=== PATIENT | female | born 1975 | race Caucasian/White ===

== ENCOUNTER 2017-12-21 23:54 | Emergency (ER) | payer BC ==
[2017-12-22 00:03] VITALS: BP 147/81; PULSE 86; TEMP 97.6; BMI 26.6
[2017-12-22] MEDS ORDERED: SODIUM CHLORIDE 1,000 ML IV STA (00:11)
[2017-12-22] MEDS ORDERED: ACETAMINOPHEN 1000 MG/100 ML VIAL (NON FORMULARY) IVPB ONE (00:12)
[2017-12-22] MEDS ORDERED: METOCLOPRAMIDE HCL INJECTION 10 MG/2 ML VIAL IVPUSH ONE (00:12)
--- NOTE | 2017-12-22 00:28 | PDOC ---
Attending Attestation - [facility] HPI: 12/22/17 00:53 The patient is a 42 year old female, with a significant past medical history of acid reflux, and HTN, who presents to the emergency department with, an episode of numbness to the face. As per patient, she has been sick for the past few days. Just prior to her arrival, she reports sudden onset numbness after blowing her nose. She reports fever, chills, eye pain, ear pain, sore throat, runny nose, and congestion. She reports her numbness has since resolved. She denies recent dizziness. She denies recent nausea, vomit, diarrhea or constipation. She denies recent dysuria, frequency, urgency or hematuria. She denies recent chest pain or shortness of breath. Allergies: Penicillins. Primary Care Physician: Dr. Meade - Physicial Exam PE: 12/22/17 01:34 GENERAL: The patient is in no acute distress. HEAD: Normal with no signs of trauma. EYES: PERRLA, EOMI, sclera anicteric, conjunctiva clear. ENT: Ears normal, nares patent, oropharynx clear without exudates. Moist mucous membranes. NECK: Normal range of motion, supple without lymphadenopathy, JVD, or masses. LUNGS: Breath sounds equal, clear to auscultation bilaterally. No wheezes, and no crackles. HEART:Regular rate and rhythm, normal S1 and S2 without murmur, rub or gallop. ABDOMEN: Soft, nontender, normoactive bowel sounds. No guarding, no rebound. No masses palpable. EXTREMITIES: Normal range of motion, no edema. No clubbing or cyanosis. No erythema, or tenderness. NEUROLOGICAL: Alert, awake, appropriate. Cranial nerves 2-12 intact. No deficits to light touch and temperature in face, upper extremities and lower extremities. No motor deficits in the in face, upper extremities and lower extremities. No pronator drift. Normoreflexic in the upper and lower extremities. Normal speech. Toes are down-going bilaterally. Gait is normal without ataxia. MUSCULOSKELETAL: Back non-tender to palpation, no CVA tenderness SKIN: Warm, Dry, normal turgor, no rashes or lesions noted. - Medical Decision Making 12/22/17 01:59 EXAM: CT HEAD WITHOUT CONTRAST No acute brain parenchymal abnormality. No hemorrhage, mass or acute territorial infarct. Mucoperiosteal thickening and minimal fluid paranasal sinuses. Visualized mastoid air cells clear. Individualized dose optimization techniques were used for this CT. Read by: Sofía Mckeon MD <Jorge Alberto Lugo - Last Filed: 12/22/17 01:59> - Resident Resident Name: Sylvester Luciano - ED Attending Attestation I have performed the following: I have examined & evaluated the patient, The case was reviewed & discussed with the resident, I agree w/resident's findings & plan, Exceptions are as noted - Medical Decision Making 12/23/17 00:34 Mr. Allen presents emergency department with a complaint of sensory deficit of the right cheek. She was in her usual state of health, has had a recent upper respiratory infection. She exited her shower and attempted to blow her nose, but was unable to do so. After that she bent forward and noticed fluid draining from the naris that appeared yellow/green. After that she noted some numbness of the right side of the mouth, cheek, jaw, beneath the right eye. The symptoms lasted until she arrived to the emergency department with a self resolved. Patient was concerned because her older brother had a stroke at the age of 4D3, and she has a strong family history of CVA. Patient sensory deficit was not associated with speech changes, vision changes, sensory deficit in the location of her body, focal weakness or numbness. Differential diagnosis includes but is not limited to: Sinusitis, doubt highly CTA, stroke is unlikely given complete resolution of her symptoms, D: Labs CT Reassess I've had a long conversation with this patient regarding follow-up with her primary care physician ABCD squared score 1 Patient low risk for stroke Anticipate discharge CT demonstrate sinusitis Patient is penicillin ALLERGIC, will treat with doxycycline Clinical impression: Sinusitis, initial presentation <Bhavana Trevino - Last Filed: 12/23/17 00:36> Attestations - Attestations 12/22/17 00:53 Documentation prepared by Jorge Alberto Lugo, acting as medical coding instructor for Bhavana Trevino MD. <Jorge Alberto Lugo - Last Filed: 12/22/17 01:59>
[2017-12-22] MEDS ORDERED: ACETAMINOPHEN INJECTION 100 ML IVPB ONE (00:50)
[2017-12-22] MEDS ORDERED: METOCLOPRAMIDE HCL INJECTION 10 MG/2 ML VIAL ONE (00:50)
[2017-12-22 00:57] LABS: HEMATOCRIT 33.6 % (32.4-45.2); HEMOGLOBIN 10.5 GM/dL (10.7-15.3); MCH 22.7 pg (25.7-33.7); MCHC 31.3 g/dl (32.0-36.0); MEAN CELL VOLUME 72.4 fl (80-96); MEAN PLT VOLUME 7.9 fl (7.5-11.1); PLATELET COUNT 338 K/MM3 (134-434); RBC 4.64 M/mm3 (3.60-5.2); RDW 17.1 % (11.6-15.6); WHITE BLOOD COUNT 12.7 K/mm3 (4.0-10.0)
[2017-12-22 01:20] LABS: ANION GAP 9 MMOL/L (8-16); BILIRUBIN,TOTAL 0.1 mg/dL (0.2-1.0); BLOOD UREA NITROGEN 12 mg/dL (7-18); CALCIUM 8.8 mg/dL (8.5-10.1); CHLORIDE 99 mmol/L (98-107); CO2 31 mmol/L (21-32); CREATININE 0.9 mg/dL (0.55-1.02); GLUCOSE,RANDOM 123 mg/dL (74-106); POTASSIUM 3.2 mmol/L (3.5-5.1); SGOT/AST 17 U/L (15-37); SGPT/ALT 25 U/L (12-78); SODIUM 139 mmol/L (136-145); TOT PROT 7.3 g/dl (6.4-8.2)
[2017-12-22 01:21] LABS: ALK PHOS 72 U/L (45-117)
[2017-12-22] MEDS ORDERED: POTASSIUM CHLORIDE TABS 20 MEQ TABLET.ER (FP) PO ONE ×2 (01:48)
--- NOTE | 2017-12-22 01:48 | PDOC ---
History of Present Illness - General Chief Complaint: CVA/TIA Stated Complaint: NUMBNESS,FACE Time Seen by Provider: 12/22/17 00:00 History Source: Patient Exam Limitations: No Limitations - History of Present Illness Initial Comments: 12/22/17 01:24 Patient is a 42F with history of asthma here today complaining of numbness to the right side of her face that onset about an hour prior to presentation. Patient reports that the numbness onset after blowing her nose with along her upper lip along the V2 aspect of the right side of her face. Denies any weakness in arms/legs. Patient reports that the abnormal sensation has improved. Endorses rhinorrhea, cough, eye pain and ear pain for the past week. Patient reports going to urgent care, being tested for strep (negative). Denies fevers, chills, vomiting. Endorses nausea. Past History - Past Medical History Allergies/Adverse Reactions: Allergies Allergy/AdvReac Type Severity Reaction Status Date / Time Penicillins Allergy Severe Difficulty Verified 12/21/17 23:59 Breathing Home Medications: Ambulatory Orders Alprazolam [Xanax] 0.25 mg PO DAILY 10/26/17 Bupropion HCl [Wellbutrin Xl] 300 mg PO DAILY 10/26/17 Fluoxetine HCl [Prozac] 30 mg PO DAILY 10/26/17 Hydrochlorothiazide [Hctz -] 25 mg PO DAILY 10/26/17 Pantoprazole Sodium [Protonix] 40 mg PO DAILY 10/26/17 Doxycycline Hyclate 100 mg PO BID #20 tablet 12/22/17 Ethinyl Estradiol/Drospirenone [Ocella 3 mg-0.03 mg Tablet] 1 each PO DAILY 03/29 Metformin HCl [Metformin HCl ER] 1,000 mg PO DAILY 12/22/17 Asthma: Yes Cardiac Disorders: Yes COPD: No GI Disorders: Yes (ACID REFLUX) HTN: Yes Psychiatric Problems: Yes (anxiety) - Surgical History Cholecystectomy: Yes - Suicide/Smoking/Psychosocial Hx Smoking Status: No Smoking History: Never smoked Have you smoked in the past 12 months: No Number of Cigarettes Smoked Daily: 0 Information on smoking cessation initiated: No Hx Alcohol Use: No Drug/Substance Use Hx: No Substance Use Type: None Review of Systems - Review of Systems Comments:: 12/22/17 02:03 GENERAL/CONSTITUTIONAL: No fever or chills. No weakness. HEAD, EYES, EARS, NOSE AND THROAT: No change in vision. +ear pain no discharge. +sore throat. CARDIOVASCULAR: No chest pain or shortness of breath RESPIRATORY: +cough. No wheezing, no hemoptysis. GASTROINTESTINAL: +nausea. No vomiting, diarrhea or constipation. GENITOURINARY: No dysuria, frequency, or change in urination. MUSCULOSKELETAL: No joint or muscle swelling or pain. No neck or back pain. SKIN: No rash NEUROLOGIC: +headache. No vertigo, loss of consciousness, or change in strength/ sensation. ENDOCRINE: No increased thirst. No abnormal weight change HEMATOLOGIC/LYMPHATIC: No anemia, easy bleeding, or history of blood clots. ALLERGIC/IMMUNOLOGIC: No hives or skin allergy. *Physical Exam - Vital Signs Last Vital Signs Temp Pulse Resp BP Pulse Ox 97.6 F 86 20 147/81 97 12/21/17 23:59 12/21/17 23:59 12/21/17 23:59 12/21/17 23:59 12/21/17 23:59 - Physical Exam Comments: 12/22/17 02:04 GENERAL: Awake, alert, and fully oriented, in no acute distress HEAD: No signs of trauma, normocephalic, atraumatic EYES: PERRLA, EOMI, sclera anicteric, conjunctiva clear ENT: Auricles normal inspection, hearing grossly normal, nares patent, oropharynx erythematous in posterior tonsils, no exudate. TM on R bulging, clear canals, left TM normal NECK: Normal ROM, supple, no lymphadenopathy, JVD, or masses LUNGS: No distress, speaks full sentences, clear to auscultation bilaterally HEART: Regular rate and rhythm, normal S1 and S2, no murmurs, rubs or gallops, peripheral pulses normal and equal bilaterally. ABDOMEN: Soft, nontender, normoactive bowel sounds. No guarding, no rebound. No masses EXTREMITIES: Normal inspection, Normal range of motion, no edema. No clubbing or cyanosis. NEUROLOGICAL: Cranial nerves II through XII grossly intact. Normal speech, normal gait, no focal sensorimotor deficits. Normal sensation in face. No motor deficits. SKIN: Warm, Dry, normal turgor, no rashes or lesions noted. ED Treatment Course - LABORATORY CBC & Chemistry Diagram: 12/22/17 00:45 12/22/17 00:45 - ADDITIONAL ORDERS Additional order review: Laboratory Results 12/22/17 12/22/17 00:45 00:45 Sodium 139 Potassium 3.2 L Chloride 99 Carbon Dioxide 31 Anion Gap 9 BUN 12 Creatinine 0.9 Creat Clearance w eGFR > 60 Random Glucose 123 H Calcium 8.8 Total Bilirubin 0.1 L AST 17 ALT 25 Alkaline Phosphatase 72 Total Protein 7.3 Albumin 3.0 L Serum , Qual Negative 12/22/17 00:45 RBC 4.64 MCV 72.4 L MCHC 31.3 L RDW 17.1 H MPV 7.9 - RADIOLOGY Radiology Studies Ordered: Category Date Time Status HEAD CT WITHOUT CONTRAST [CT] Stat CT Scan 12/22/17 00:12 Ordered - Medications Given in the ED: ED Medications Discontinued Medications Generic Name Dose Route Start Last Admin Trade Name Freq PRN Reason Stop Dose Admin Acetaminophen 1,000 mg 12/22/17 00:12 12/22/17 01:01 Ofirmev Injection - IVPB 12/22/17 00:13 1,000 mg ONCE ONE Administration Diphenhydramine HCl 50 mg 12/22/17 00:30 12/22/17 01:02 Benadryl Injection - IVPUSH 12/22/17 00:31 50 mg ONCE ONE Administration Sodium Chloride 1,000 mls @ 1,000 mls/hr 12/22/17 00:11 12/22/17 01:01 Normal Saline - IV 12/22/17 01:10 1,000 mls/hr ASDIR STA Administration Metoclopramide HCl 10 mg 12/22/17 00:12 12/22/17 01:02 Reglan Injection - IVPUSH 12/22/17 00:13 10 mg ONCE ONE Administration Medical Decision Making - Medical Decision Making 12/22/17 02:05 Patient is 42F here today with facial numbness, symptoms now resolved. Suspect patient has sinusitis. History and physical not consistent with stroke or chaparro' s palsy. Head CT shows no infact, does show sinusitis. Labs show low K, given K-dur. Will discharge with doxy, give neuro follow up as outpatient. *DC/Admit/Observation/Transfer Diagnosis at time of Disposition: Sinusitis - Discharge Dispostion Disposition: HOME Condition at time of disposition: Good Decision to Admit order: No - Prescriptions Prescriptions: Doxycycline Hyclate 100 mg PO BID #20 tablet - Referrals Referrals: Mir Meade [Primary Care Provider] - - Patient Instructions Printed Discharge Instructions: DI for Sinusitis Additional Instructions: Please return if you have any new, worsening or concerning symptoms. Please follow up with your primary care physician this week. - Post Discharge Activity
[2017-12-22] MEDS ORDERED: DOXYCYCLINE HYCLATE 100 MG CAPSULE PO ONE ×2 (02:07→02:09)
== END 2017-12-22 02:20 | disposition home or self-care (01) ==
LOC: JER 23:54
PROC: 3E033NZ Introduction of Analgesics, Hypnotics, Sedatives into Peripheral Vein, Percutaneous Approach (ICD-10-PCS; principal; 2017-12-21)
PROC: 3E033GC Introduction of Other Therapeutic Substance into Peripheral Vein, Percutaneous Approach (ICD-10-PCS; 2017-12-21)
PROC: 3E033GC Introduction of Other Therapeutic Substance into Peripheral Vein, Percutaneous Approach (ICD-10-PCS; 2017-12-21)
DX: J01.90 Acute sinusitis, unspecified (principal); E87.6 Hypokalemia; J45.909 Unspecified asthma, uncomplicated; K21.9 Gastro-esophageal reflux disease without esophagitis; F41.9 Anxiety disorder, unspecified; Z88.0 Allergy status to penicillin
CPT/HCPCS: 36415; 70450-TC; 70486-TC; 80053; 84703; 85027; 99285-25; J0131; J7030